=== PATIENT | male | born 1990 | race Caucasian/White ===

== ENCOUNTER 2017-07-05 21:45 | Emergency (ER) | payer SELFPAY ==
[2017-07-05 22:02] VITALS: BP 150/92; PULSE 56; RESP 18; TEMP 98.7
[2017-07-07] MEDS ORDERED: ALBUAER3 INH ×2 (21:45→22:31)
== END 2017-07-06 01:30 | disposition left against medical advice (07) ==
LOC: NED 21:45
DX: R42 Dizziness and giddiness (principal)
CPT/HCPCS: 99281

== ENCOUNTER 2017-07-07 18:45 | Emergency (ER) | payer MEDICAID ==
[~2017-07-07] VITALS: Ht 177.8 cm; Wt 75.0 kg
[2017-07-07 19:07] VITALS: BP 150/87; PULSE 57; RESP 18; TEMP 98.3; O2SAT 100
[2017-07-07] MEDS ORDERED: DEXAMETHASONE SOD PHOS 4 MG/ML VIAL IM ONE (21:00)
[2017-07-07] MEDS ORDERED: SODIUM CHLOR 0.9% 1000 ML INJ 1,000 ML IV ONE (21:00)
[2017-07-07] MEDS ORDERED: SODIUM CHLORIDE 0.9% FLUSH 10 ML FLUSH IVF PRN (21:00)
[2017-07-07] MEDS: RESP: ALBUTEROL 2.5 MG/IPRATROPIUM 0.5 MG NEB (SCH) INH (21:09)
[2017-07-07] MEDS ORDERED: ALBUAER3 INH ×2 (21:45→22:31)
--- NOTE | 2017-07-07 21:45 | PD ---
HPI Chief Complaint: Respiratory Symptoms Time Seen by Provider: 20:36 Travel History International Travel<30 days: No Contact w/Intl Traveler<30days: No Traveled to known affect area: No History of Present Illness HPI 26-year-old male arrives to the ER with complaint of dyspnea. The patient reports breathing is as if he is breathing through a straw. Symptoms are constant. It has been so for years. The patient reports 1 month ago he began feeling lightheaded and dizzy. He reports is as if he is walking remains. He also reports right abdomen discomfort which happened for 3 weeks and then went away for a week and then return for 1 week. He notes blood in stool in the mornings for 2 days. No similar prior events. No fever. Patient also reports a cough occasionally productive of clear sputum. No chest pain. PFSH Past Medical History Medical History: Denies Significant Hx Past Surgical History Ear Surgery: Yes Social History Alcohol Use: Yes (occasional) Tobacco Use: No Substance Use: No Allergies-Medications (Allergen,Severity, Reaction): Coded Allergies: No Known Allergies (Unverified , 07/07/17) Reported Meds & Prescriptions Reported Meds & Active Scripts Active Proair Hfa 8.5 GM Inh (Albuterol Sulfate) 90 Mcg/Act Aer 2 Puff INH Q6H PRN 108 mcg/actuation Review of Systems Except as stated in HPI: all other systems reviewed are Neg General / Constitutional: No: Fever Physical Exam Narrative GENERAL: 26-year-old male well-nourished well-developed no acute distress RECTAL: There is no significant hemorrhoid internal or external. Stool is guaiac negative. Vital Signs Date Time Temp Pulse Resp B/P (MAP) Pulse Ox O2 Delivery O2 Flow Rate FiO2 07/07/17 19:07 98.3 57 18 150/87 (108) 100 SKIN: Warm and dry. HEAD: Atraumatic. Normocephalic. EYES: Pupils equal and round. No scleral icterus. No injection or drainage. ENT: No nasal bleeding or discharge. Mucous membranes pink and moist. NECK: Trachea midline. No JVD. CARDIOVASCULAR: Regular rate and rhythm. RESPIRATORY: No significant tachypnea or accessory muscle use. GASTROINTESTINAL: Abdomen soft, non-tender, nondistended. Hepatic and splenic margins not palpable. MUSCULOSKELETAL: Extremities without clubbing, cyanosis, or edema. No obvious deformities. NEUROLOGICAL: Awake and alert. No obvious cranial nerve deficits. Motor grossly within normal limits. Five out of 5 muscle strength in the arms and legs. Normal speech. PSYCHIATRIC: Appropriate mood and affect; insight and judgment normal. Data Data Last Documented VS Vital Signs Date Time Temp Pulse Resp B/P (MAP) Pulse Ox O2 Delivery O2 Flow Rate FiO2 07/07/17 19:07 98.3 57 18 150/87 (108) 100 Orders Orders Complete Blood Count With Diff (07/07/17 20:50) Basic Metabolic Panel (Bmp) (07/07/17 20:50) Iv Access Insert/Monitor (07/07/17 20:50) Electrocardiogram (07/07/17 20:50) Ecg Monitoring (07/07/17 20:50) Oximetry (07/07/17 20:50) Oxygen Administration (07/07/17 20:50) Chest, Pa & Lat (07/07/17 20:50) Sodium Chloride 0.9% Flush (Ns Flush) (07/07/17 21:00) Albuterol-Ipratropium Neb (Duoneb Neb) (07/07/17 21:00) Dexamethasone Inj (Decadron Inj) (07/07/17 21:00) Sodium Chlor 0.9% 1000 Ml Inj (Ns 1000 M (07/07/17 21:00) Labs Laboratory Tests Test 07/07/17 21:35 White Blood Count 7.7 TH/MM3 Red Blood Count 4.97 MIL/MM3 Hemoglobin 14.8 GM/DL Hematocrit 42.2 % Mean Corpuscular Volume 84.9 FL Mean Corpuscular Hemoglobin 29.7 PG Mean Corpuscular Hemoglobin Concent 35.0 % Red Cell Distribution Width 13.2 % Platelet Count 248 TH/MM3 Mean Platelet Volume 8.0 FL Neutrophils (%) (Auto) 41.3 % Lymphocytes (%) (Auto) 48.8 % Monocytes (%) (Auto) 7.1 % Eosinophils (%) (Auto) 2.1 % Basophils (%) (Auto) 0.7 % Neutrophils # (Auto) 3.2 TH/MM3 Lymphocytes # (Auto) 3.7 TH/MM3 Monocytes # (Auto) 0.5 TH/MM3 Eosinophils # (Auto) 0.2 TH/MM3 Basophils # (Auto) 0.1 TH/MM3 CBC Comment DIFF FINAL Differential Comment Blood Urea Nitrogen 14 MG/DL Creatinine 1.05 MG/DL Random Glucose 92 MG/DL Calcium Level 9.3 MG/DL Sodium Level 140 MEQ/L Potassium Level 3.7 MEQ/L Chloride Level 106 MEQ/L Carbon Dioxide Level 28.0 MEQ/L Anion Gap 6 MEQ/L Estimat Glomerular Filtration Rate 85 ML/MIN MDM Medical Decision Making Medical Screen Exam Complete: Yes Emergency Medical Condition: Yes Medical Record Reviewed: Yes Differential Diagnosis Anemia, asthma, pneumonia, electrolyte imbalance Narrative Course CBC & BMP Diagram 07/07/17 21:35 Calcium Level 9.3 cxr: nacpd EKG shows sinus rhythm with an incomplete right bundle branch block pattern with a rate of 63 Diagnosis Primary Impression: Dyspnea Qualified Codes: R06.09 - Other forms of dyspnea Additional Impression: RBBB Referrals: Primary Care Physician 2 days Med/Other Pt SpecificInfo: Prescription(s) given Scripts Albuterol 8.5 GM Inh (Proair Hfa 8.5 GM Inh) 90 Mcg/Act Aer 2 PUFF INH Q6H Y for SHORTNESS OF BREATH, #1 INHALER 0 Refills 108 mcg/actuation Prov: Kole Bowles MD 07/07/17 Disposition: 01 DISCHARGE HOME Condition: Stable Kloe Bowles MD Jul 07, 2017 21:45
[2017-07-07 21:49] LABS: AUTOMATED NEUTROPHIL # 3.2 TH/MM3 (1.8-7.7); BASOPHIL # 0.1 TH/MM3 (0-0.2); BASOPHIL % 0.7 % (0.0-2.0); EOSINOPHIL # 0.2 TH/MM3 (0-0.4); EOSINOPHIL % 2.1 % (0.0-4.0); HEMATOCRIT 42.2 % (39.0-51.0); HEMOGLOBIN 14.8 GM/DL (13.0-17.0); LYMPH % 48.8 % (9.0-44.0); LYMPHOCYTE # 3.7 TH/MM3 (1.0-4.8); MEAN CELL VOLUME 84.9 FL (80.0-100.0); MEAN CORPUSCULAR HEMOGLOBIN 29.7 PG (27.0-34.0); MONO % 7.1 % (0.0-8.0); MONOCYTE # 0.5 TH/MM3 (0-0.9); NEUT % 41.3 % (16.0-70.0); PLATELET COUNT 248 TH/MM3 (150-450); RED BLOOD COUNT 4.97 MIL/MM3 (4.50-5.90); RED CELL DISTRIBUTION WIDTH 13.2 % (11.6-17.2); WHITE BLOOD COUNT 7.7 TH/MM3 (4.0-11.0)
--- NOTE | 2017-07-07 21:58 | RADRPT ---
EXAM DATE/TIME: 07/07/2017 21:00 [facility] COMPARISON: No previous studies available for comparison. INDICATIONS : Shortness of breath, cough, and dizziness. MEDICAL HISTORY : None. SURGICAL HISTORY : None. ENCOUNTER: Initial ACUITY: 3 months PAIN SCORE: 0/10 LOCATION: chest FINDINGS: PA and lateral views of the chest demonstrate the lungs to be symmetrically aerated without evidence of mass, infiltrate or effusion. The cardiomediastinal contours are unremarkable. Osseous structure s are intact. CONCLUSION: No acute disease. Tim Jaimes MD on July 07, 2017 at 21:56 Board Certified Radiologist. This report was verified electronically.
[2017-07-07 22:05] LABS: CALCIUM 9.3 MG/DL (8.5-10.1); CREATININE 1.05 MG/DL (0.60-1.30)
[2017-07-07 22:36] VITALS: BP 145/79; PULSE 88; RESP 16; O2SAT 98
--- NOTE | 2017-07-08 19:01 | EKG ---
Date Performed: 07/07/2017 Time Performed: 21:48:19 PTAGE: 26 years EKG: Sinus rhythm WITH SINUS ARRHYTHMIA INCOMPLETE RIGHT BUNDLE BRANCH BLOCK Since the previous tracing, no significan t change noted. The prior tracing was pediatric BORDERLINE ECG PREVIOUS TRACING : 07/29/1999 @ 1947 DOCTOR: Syed Garcia Interpretating Date/Time 07/08/2017 19:01:02
== END 2017-07-07 22:38 | disposition home or self-care (01) ==
LOC: NEPD 18:45
DX: R06.02 Shortness of breath (principal); I45.10 Unspecified right bundle-branch block
CPT/HCPCS: 71046; 80048; 85025; 93005; 94640; 94664; 96360; 96372; 99285; J1100; J7030